=== PATIENT | female | born 1985 | race Hispanic/Latino ===

== ENCOUNTER 2021-05-04 21:52 | Emergency (ER) | payer OTHER ==
[2021-05-04 22:44] LABS: Basophils # (Auto) 0.1 K/mm3 (0.0-0.1); Basophils % (Auto) 0.4 % (0.0-1.8); Eosinophils # (Auto) 0.1 K/mm3 (0.0-0.4); Eosinophils % (Auto) 0.9 % (0.0-4.3); Hemoglobin 12.9 gm/dl (10.1-14.3); Lymphocytes # (Auto) 2.5 K/mm3 (1.2-5.4); Lymphocytes % (Auto) 16.2 % (13.4-35.0); Mean Corpuscular HGB Conc 34 % (30-34); Mean Corpuscular Volume 86 fl (79-97); Monocytes # (Auto) 1.1 K/mm3 (0.0-0.8); Monocytes % (Auto) 7.1 % (0.0-7.3); Platelet Count 241 K/mm3 (140-440); Red Cell Distribution Width 12.9 % (13.2-15.2)
--- NOTE | 2021-05-04 23:40 | Ultrasound Report ---
US OB <= 14 weeks fetus INDICATION / CLINICAL INFORMATION: vaginal bleeding. TECHNIQUE: Transabdominal. COMPARISON: None available. FINDINGS: UTERUS: Appears within normal limits. Subchorionic hemorrhage measuring 2.9 x 2.0 x 1.3 cm. GESTATIONAL SAC: Well-defined oval shape and intrauterine in location. EMBRYO/FETUS: - [place]-Rump Length = 81.2 cm - Heart Rate, beats per minute (if present) = 132 beats per minut e Placenta: Posterior. Arteries: Appears closed. Lower uterine segment contractions limits the evaluation of cervical length . ADNEXA: Right ovary not visualized. Left ovary appears within normal limits. FREE FLUID: None. ADDITIONAL FINDINGS: None. IMPRESSION: 1. Single, living intrauterine with estimated sonographic age of 14 weeks 1 days. Subchori onic hemorrhage is present measuring 2.9 x 2 x 1.3 cm. Signer Name: Rey Esteves MD Signed: 05/04/2021 11:35 PM Workstation Name: [id number]
--- NOTE | 2021-05-04 23:57 | Emergency Department Report ---
ED HPI - General Chief complaint: Vaginal Bleeding Stated complaint: 14WKS PREG/BLEEDING Time Seen by Provider: 05/04/21 22:35 Source: patient Mode of arrival: Ambulatory Limitations: No Limitations - History of Present Illness Initial comments: Patient is G6, who is 14 weeks , followed by [facility], patient states vaginal spotting and bleeding. With bilateral lower abdominal cramping. There is no fever, chills no nausea or vomiting. Patient denies dysuria or abnormal vaginal discharge. Current symptoms are exacerbated by nothing, symptoms are relieved by nothing. - Related Data Previous Rx's Medication Instructions Recorded Last Taken Type cephALEXin [Keflex] 500 mg PO BID 7 Days #14 cap 05/05/21 Unknown Rx Allergies Allergy/AdvReac Type Severity Reaction Status Date / Time codeine Allergy Vomiting Verified 05/04/21 22:05 ED Review of Systems ROS: Stated complaint: 14WKS PREG/BLEEDING Other details as noted in HPI Constitutional: denies: chills, fever Eyes: denies: eye pain, eye discharge, vision change ENT: denies: ear pain, throat pain Respiratory: denies: cough, shortness of breath, wheezing Cardiovascular: denies: chest pain, palpitations Endocrine: no symptoms reported Gastrointestinal: abdominal pain. denies: nausea, vomiting, diarrhea, constipation Genitourinary: other (vaginal bleeding ). denies: urgency, dysuria, frequency, hematuria, discharge Musculoskeletal: denies: back pain, joint swelling, arthralgia Skin: denies: rash, lesions Neurological: denies: headache, weakness, paresthesias Psychiatric: denies: anxiety, depression Hematological/Lymphatic: denies: easy bleeding, easy bruising ED Past Medical Hx - Past Medical History Previous Medical History?: Yes - Surgical History Past Surgical History?: Yes Additional Surgical History: X2 - Social History Smoking Status: Never Smoker Substance Use Type: None - Medications Home Medications: Home Medications Medication Instructions Recorded Confirmed Last Taken Type cephALEXin [Keflex] 500 mg PO BID 7 Days #14 cap 05/05/21 Unknown Rx ED Physical Exam - General Limitations: No Limitations General appearance: alert, in no apparent distress - Head Head exam: Present: atraumatic, normocephalic - Eye Eye exam: Present: normal appearance, EOMI Pupils: Present: normal accommodation - ENT ENT exam: Present: mucous membranes moist - Neck Neck exam: Present: normal inspection, full ROM. Absent: tenderness - Respiratory Respiratory exam: Present: normal lung sounds bilaterally. Absent: respiratory distress, wheezes - Cardiovascular Cardiovascular Exam: Present: regular rate, normal rhythm, normal heart sounds. Absent: systolic murmur, diastolic murmur, rubs, gallop - GI/Abdominal GI/Abdominal exam: Present: soft, normal bowel sounds. Absent: distended, tenderness, bruit, hernia - Rectal Rectal exam: Present: deferred - External exam: Present: other (deferred ) - Extremities Exam Extremities exam: Present: normal inspection, full ROM. Absent: tenderness - Back Exam Back exam: Present: normal inspection, full ROM. Absent: CVA tenderness (R), CVA tenderness (L) - Neurological Exam Neurological exam: Present: alert, oriented X3 - Psychiatric Psychiatric exam: Present: normal affect, normal mood - Skin Skin exam: Present: warm, dry, intact, normal color. Absent: rash ED Course Vital Signs 05/04/21 22:03 Temperature 98.1 F Pulse Rate 87 Respiratory 16 Rate Blood Pressure 185/98 O2 Sat by Pulse 97 Oximetry ED Medical Decision Making - Lab Data Result diagrams: 05/04/21 22:17 - Radiology Data Radiology results: report reviewed, image reviewed US OB <= 14 weeks fetus INDICATION / CLINICAL INFORMATION: vaginal bleeding. TECHNIQUE: Transabdominal. COMPARISON: None available. FINDINGS: UTERUS: Appears within normal limits. Subchorionic hemorrhage measuring 2.9 x 2.0 x 1.3 cm. GESTATIONAL SAC: Well-defined oval shape and intrauterine in location. EMBRYO/FETUS: - [place]-Rump Length = 81.2 cm - Heart Rate, beats per minute (if present) = 132 beats per minute Placenta: Posterior. Arteries: Appears closed. Lower uterine segment contractions limits the evaluation of cervical length. ADNEXA: Right ovary not visualized. Left ovary appears within normal limits. FREE FLUID: None. ADDITIONAL FINDINGS: None. IMPRESSION: 1. Single, living intrauterine with estimated sonographic age of 14 weeks 1 days. Subchorionic hemorrhage is present measuring 2.9 x 2 x 1.3 cm. Signer Name: Rey Esteves MD Signed: 05/04/2021 11:35 PM Workstation Name: [id number] Transcribed By: CS Dictated By: Rey Esteves MD Electronically Authenticated By: Rey Esteves MD Signed Date/Time: 05/04/212334 DD/ 32 TD/TT: - Medical Decision Making Ultrasound OB pos IUP 14 weeks and 1 day, heart rate 1 3 2 bpm, subchorionic hemorrhage noted, hCG 46,000, noted WBCs, plan discharge home, diagnosis subchorionic hemorrhage, Bleeding in second trimester, UTI, pelvic rest, follow-up with [facility] in 1 to 2 days, return to emergency room should symptoms worsen. Patient verbalized agreement and understanding of discharge plan. Patient DC'd home in stable condition at this time. Critical care attestation.: If time is entered above; I have spent that time in minutes in the direct care of this critically ill patient, excluding procedure time. ED Disposition Clinical Impression: Subchorionic hemorrhage in second trimester Qualifiers: Fetus number: single or unspecified fetus Qualified Code(s): O41.8X20 - Other specified disorders of amniotic fluid and membranes, second trimester, not applicable or unspecified; O46.8X2 - Other antepartum hemorrhage, second trimester Disposition: DC-01 TO HOME OR SELFCARE Is pt being admited?: No Does the pt Need Aspirin: No Condition: Stable Instructions: Vaginal Bleeding During , Second Trimester, Subchorionic Hematoma, Activity Restriction During Additional Instructions: Take medications as prescribed, Pelvic Rest, follow-up with your [facility] doctor in 1 to 2 days, return to emergency should symptoms worsen. Prescriptions: cephALEXin [Keflex] 500 mg PO BID 7 Days #14 cap Referrals: [facility] [Provider [facility]] - [facility] Forms: Work/School Release Form(ED) Time of Disposition: 00:05
[2021-05-05 00:17] VITALS: BP 128/82
== END 2021-05-05 00:19 | disposition home or self-care (01) ==
LOC: ED 21:52
DX: O20.8 Other hemorrhage in early pregnancy (principal); Z3A.14 14 weeks gestation of pregnancy; Z98.890 Other specified postprocedural states; Z79.899 Other long term (current) drug therapy; Z88.8 Allergy status to other drugs, medicaments and biological substances
CPT/HCPCS: 36415; 76801; 76805; 84702; 85025; 86900; 86901